=== PATIENT | female | born 1965 | race Caucasian/White ===

== ENCOUNTER 2022-10-14 23:53 | Observation (INO) | payer MEDICAID, SELFPAY ==
[2022-10-14 23:56] VITALS: BP 182/86; PULSE 63; RESP 24; TEMP 36.7; O2SAT 98; BMI 68.1
--- NOTE | 2022-10-14 23:57 | XR_ITS ---
[facility] [id number] Patient Name: KAELYN GOLDMAN MRN: [id number] date: 1965 Sex: F Assigned Patient Location: ER Current Patient Location: ED.MAIN Accession/Order Number: [id number] Exam Date: 10/14/2022 23:59 Report Date: 10/15/2022 01:14 At the request of: FROILAN MCKEON Procedure: XR chest 1V EXAM: XR chest 1V HISTORY: cp COMPARISON: None. TECHNIQUE: One view of the chest was obtained. FINDINGS: A tracheostomy tube is in place. The cardiac silhouette is mildly enlarged. There is no significant pneumothorax or pleural effusion. There is left basilar opacification. No acute osseous abnormality is seen. XR/XR chest 1V IMPRESSION: 1. Mildly enlarged cardiac silhouette with left basilar opacification which could represent atelectasis, aspiration changes, and/or pneumonia. Electronically authenticated by: Ladarius SAENZ Date: 10/15/2022 01:14
--- NOTE | 2022-10-14 23:57 | ECG_ITS ---
[facility] Test Date: 2022-10-15 Pat Name: Anca Perez Department: Room: - Gender: Female Reactor Operator: : 1965 Requested By: TERRY WHITEHEAD Order Number: [id number] Reading MD: JADE TYLER Measurements Intervals [place] Rate: 59 P: 58 IA: 144 QRS: 44 QRSD: 110 T: 90 QT: 404 QTc: 403 Interpretive Statements 1100 Sinus bradycardia 2420 RSR (QR) in lead V1/V2, consistent with right ventricular conduction delay [address] depression 4164 Twave abnormality, possible anterior ischemia 8102 Low QRS voltage in chest leads 9150 abnormal ECG No previous ECG available for comparison Electronically Signed On 10-15-2022 7:06:38 EDT by JADE TYLER
[2022-10-14 23:59] VITALS: BP 182/86
[2022-10-15] VITALS (63 sets, daily range): BP systolic 131–143; BP diastolic 71–84; PULSE 46–100; RESP 11–26; TEMP 36.6; O2SAT 86–100; BMI 65.2
--- NOTE | 2022-10-15 00:10 | ED_ITS ---
HPI - Chest Pain General Chief Complaint: Chest Pain Stated Complaint: chest pain Time Seen by Provider: 10/14/22 23:57 Source: patient and other Source comment: EMS Mode of arrival: ambulance Limitations: physical limitation History of Present Illness HPI narrative: Patient states coming to us from a alf facility with multiple comorbidities including CHF COPD GERD and schizophrenia with history of chronic respiratory failure on his trach with vent mask, the patient presenting to us with chest pain that started more than 2 hours before arrival , was provided with nitroglycerin before arrival and she does not have any pain at the moment ,the patient mentioned that the pain was retrosternal not associated with any nausea vomiting or any other complaints she has been having diarrhea too that is new for the last 3 days but she mentioned that it was preceded by her eating a lot of sweets The patient pain was retrosternal radiating to her left shoulder associated with pressure and according to her it was relieved by nitroglycerin The patient upon presentation was angry at the SNF as she mentioned that she had issues there although she was still agreeable to go back there when she is discharged Related Data Home Medications Medication Instructions Recorded Confirmed acetaminophen 325 mg capsule 325 mg PO Q6H PRN pain 10/15/22 10/15/22 bumetanide 2 mg tablet 2 mg PO TID 10/15/22 10/15/22 buspirone 15 mg tablet 15 mg PO TID 10/15/22 10/15/22 cholecalciferol (vitamin D3) 25 25 mcg PO DAILY 10/15/22 10/15/22 mcg (1,000 unit) capsule cinacalcet 30 mg tablet 30 mg PO DAILY 10/15/22 10/15/22 clonazepam 0.5 mg tablet 0.5 mg PO DAILY 10/15/22 10/15/22 clonazepam 1 mg tablet 1 mg PO BID 10/15/22 10/15/22 ferrous sulfate 325 mg (65 mg 325 mg PO DAILY 10/15/22 10/15/22 iron) tablet (iron) guaifenesin 600 mg tablet, 600 mg PO Q12H 10/15/22 10/15/22 extended release 12 hr ipratropium 0.5 mg-albuterol 3 mg 3 ml inhalation Q6H 10/15/22 10/15/22 (2.5 mg base)/3 mL nebulization soln levetiracetam 1,000 mg tablet 1,000 mg PO BID 10/15/22 10/15/22 (Keppra) levothyroxine 25 mcg tablet 25 mcg PO DAILY 10/15/22 10/15/22 (Euthyrox) loratadine 10 mg tablet (Claritin) 10 mg PO DAILY 10/15/22 10/15/22 metformin 500 mg tablet 500 mg PO BID 10/15/22 10/15/22 omeprazole 20 mg capsule,delayed 20 mg PO DAILY 10/15/22 10/15/22 release polyethylene glycol ea miscellaneous 10/15/22 potassium chloride 20 mEq 20 meq PO TID 10/15/22 10/15/22 tablet,extended release(part/cryst) (Klor-Con M) risperidone 1 mg tablet (Risperdal) 1 mg PO BID 10/15/22 10/15/22 risperidone 1 mg tablet (Risperdal) 1 mg PO DAILY 10/15/22 10/15/22 sennosides 8.6 mg-docusate sodium 1 tab-cap PO DAILY 10/15/22 10/15/22 50 mg tablet sertraline 100 mg tablet 100 mg PO DAILY 10/15/22 10/15/22 tizanidine 4 mg capsule 4 mg PO Q8H 10/15/22 10/15/22 topiramate 25 mg tablet (Topamax) 25 mg PO BID 10/15/22 10/15/22 tramadol 50 mg tablet 50 mg PO Q8H 10/15/22 10/15/22 Allergies Allergy/AdvReac Type Severity Reaction Status Date / Time aspirin Allergy Unknown Verified 10/15/22 00:00 Penicillins Allergy Unknown Verified 10/15/22 00:00 Review of Systems ROS Status of ROS 10 or more systems reviewed and unremarkable except as noted in history and below [facility] Medical History (Updated 10/15/22 @ 06:28 by Tomasa Bravo MD) Surgical History (Updated 10/15/22 @ 00:57 by Fabiana Harvey) Social History (Updated 10/15/22 @ 00:57 by Fabiana Harvey) Within the past year, how often did you have a drink containing alcohol: monthly or less Smoking status: Never smoker Non-prescribed substance use: denies use Exam Narrative Exam Narrative: Nurses notes and vital signs reviewed and patient is not hypoxic. General: Morbidly obese and bad hygiene and in no apparent distress. Skin: Warm, dry, no pallor noted. No rash. Head: Normocephalic, atraumatic. Neck: Supple, non-tender. With a trach mask Eye: Pupils are equal, round and EOMI. No scleral icterus. Ears, Nose, Mouth, and Throat: TM are clear, no nasal mucosal hypertrophy. Oral mucosa is moist, no posterior oropharynx erythema, uvula is mid-line Cardiovascular: Regular Rate and Rhythm without murmur, gallop or rub. Respiratory: No accessory muscle use or respiratory distress. Lungs distant breathing sound bilaterally ,with wheezing expiratoty and mild Chest Wall: no tenderness Back: No midline thoracic or lumbar vertebral tenderness. No CVA tenderness GI: Abdomen is soft, non-distended. Normal bowel sounds. No masses appreciated. No tenderness to palpation. No rebound, guarding, or rigidity noted. Neurological: A&O x4. No cranial nerve dysfunction observed. No truncal ataxia. Moves all extremities. Sensation intact. Psychiatric: Cooperative and interactive. Normal mood and affect. Constitutional Vital Signs, click to edit/add: Last Vital Signs Temp 98.0 F 10/14/22 23:56 Pulse 59 L 10/15/22 05:00 Resp 23 10/15/22 05:00 BP 182/86 H 10/14/22 23:59 Pulse Ox 100 10/15/22 05:00 O2 Del Method Venturi Mask 10/15/22 02:34 O2 Flow Rate 6 10/15/22 02:34 FiO2 40 10/15/22 04:27 Course Vital Signs Vital signs: Vital Signs Temperature 98.0 F 10/14/22 23:56 Pulse Rate 63 10/14/22 23:56 Respiratory Rate 24 10/14/22 23:56 Blood Pressure 182/86 H 10/14/22 23:56 Pulse Oximetry 98 10/14/22 23:56 Oxygen Delivery Method Venturi Mask 10/14/22 23:56 Oxygen Delivery Flow Rate 5 10/14/22 23:56 Temperature 98.0 F 10/14/22 23:56 Pulse Rate 59 L 10/15/22 05:00 Respiratory Rate 23 10/15/22 05:00 Blood Pressure 182/86 H 10/14/22 23:59 Pulse Oximetry 100 10/15/22 05:00 Oxygen Delivery Method Venturi Mask 10/15/22 02:34 Oxygen Delivery Flow Rate 6 10/15/22 02:34 Fraction of Inspired Oxygen 40 10/15/22 04:27 MDM - Chest Pain MDM Narrative Medical decision making narrative: When presenting to us the patient did not have any chest pain anymore her EKG showing multiple nonspecific changes with T wave inversion seen in lead V1 to V3 and the patient also had flattening of the T waves in lead III and aVF There was no old EKG for comparison the patient presented to us with elevated blood pressure of 180 systolic heart score is 5 It was noted that the patient also had diarrhea for the last few days and that was one of her concerns as well The patient EKG did show some nonspecific T wave inversion and she had her pain resolved with nitroglycerin before arrival, the patient received a breathing treatment in the ER she also had her trach vent setting that she is supposed to be at night started in the ER which is AC respiratory rate of 12 tidal volume 500 and PEEP of 6 with 40% oxygen The patient pain resolved before arrival but the patient is high risk and presented to us with a typical chest pain that is retrosternal associated with pressure and radiating to her left shoulder with a the pain resolving with nitroglycerin and T wave inversion in the EKG that have no previous EKG for comparison the patient will be kept for observation pt case discussed with Dr Gerardo and admitted as observation Lab Data Labs: Lab Results 10/14/22 10/15/22 Range/Units 00:35 02:21 WBC 6.9 (4.0-11.0) 10^3/uL RBC 4.43 (4.20-5.40) 10^6/uL Hgb 12.9 (12.0-16.0) g/dL Hct 41.7 (36.0-48.0) % MCV 94.1 (81.0-99.0) fL MCH 29.1 (26.7-34.0) pg MCHC 30.9 (29.9-35.2) g/dL RDW 12.6 (11.0-15.0) % Plt Count 181 (150-450) 10^3/uL MPV 11.6 (9.5-13.5) fL Neut % (Auto) 70.9 (43.0-75.0) % Lymph % (Auto) 19.2 L (20.5-60.0) % [place] % (Auto) 6.9 (1.7-12.0) % Eos % (Auto) 2.6 (0.9-7.0) % Baso % (Auto) 0.1 L (0.2-2.0) % Neut # (Auto) 4.9 (1.4-6.5) 10^3/uL Lymph # (Auto) 1.3 (1.2-3.8) 10^3/uL [place] # (Auto) 0.5 (0.3-0.8) 10^3/uL Eos # (Auto) 0.2 (0.0-0.7) 10^3/uL Baso # (Auto) 0.0 (0.0-0.1) 10^3/uL Abs Immat Gran (auto) 0.02 (0.00-0.03) 10^3/uL Imm/Tot Granulo (auto) 0.3 (0.0-0.5) % PT 9.8 (9.0-11.6) sec INR <0.93 Sodium 141 (136-145) mmol/L Potassium 3.4 L (3.5-5.1) mmol/L Chloride 100 (98-107) mmol/L Carbon Dioxide 38.0 H (21.0-32.0) mmol/L Anion Gap 6.4 BUN 21.0 H (7.0-18.0) mg/dL Creatinine 0.90 (0.55-1.02) mg/dL Est GFR ( Amer) >60 (>=60) Est GFR (Non-Af Amer) >60 (>=60) BUN/Creatinine Ratio 23.3 Glucose 109 H (74-106) mg/dL Calcium 9.4 (8.5-10.1) mg/dL Total Bilirubin 0.4 (0.2-1.0) mg/dL AST 16 (15-37) U/L ALT 23 (14-59) U/L Alkaline Phosphatase 110 (46-116) U/L Troponin I High Sens 5.7 6.0 (4.0-51.3) pg/mL Total Protein 8.0 (6.4-8.2) g/dL Albumin 3.4 (3.4-5.0) g/dL Globulin 4.6 g/dL Albumin/Globulin Ratio 0.7 Discharge Plan Discharge Chief Complaint: Chest Pain Clinical Impression: Chronic hypercapnic respiratory failure, Gastroenteritis, Chest pain Patient Disposition: Admitted as Observation Time of Disposition Decision: 06:28 Condition: Good
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
[2022-10-15 00:53] LABS: Basophils Percent Auto 0.1 % (0.2-2.0); Eosinophils Absolute Auto 0.2 10^3/uL (0.0-0.7); Eosinophils Percent Auto 2.6 % (0.9-7.0); Hematocrit 41.7 % (36.0-48.0); Hemoglobin 12.9 g/dL (12.0-16.0); Immature Granulocytes Abs Auto 0.02 10^3/uL (0.00-0.03); Immature Granulocytes Pct Auto 0.3 % (0.0-0.5); Lymphocytes Absolute Auto 1.3 10^3/uL (1.2-3.8); Lymphocytes Percent Auto 19.2 % (20.5-60.0); Mean Corpuscular HGB Conc 30.9 g/dL (29.9-35.2); Mean Corpuscular Hemoglobin 29.1 pg (26.7-34.0); Mean Corpuscular Volume 94.1 fL (81.0-99.0); Mean Platelet Volume 11.6 fL (9.5-13.5); Monocytes Absolute Auto 0.5 10^3/uL (0.3-0.8); Monocytes Percent Auto 6.9 % (1.7-12.0); Neutrophils Absolute Auto 4.9 10^3/uL (1.4-6.5); Neutrophils Percent Auto 70.9 % (43.0-75.0); Platelet Count 181 10^3/uL (150-450); Red Blood Count 4.43 10^6/uL (4.20-5.40); Red Cell Distribution Width 12.6 % (11.0-15.0); White Blood Count 6.9 10^3/uL (4.0-11.0)
[2022-10-15 01:03] LABS: INR <0.93; Prothrombin Time 9.8 sec (9.0-11.6)
[2022-10-15 01:06] LABS: Alanine Aminotransferase 23 U/L (14-59); Albumin Globulin Ratio 0.7; Albumin Level 3.4 g/dL (3.4-5.0); Alkaline Phosphatase 110 U/L (46-116); Anion Gap 6.4; Aspartate Amino Transferase 16 U/L (15-37); BUN Creatinine Ratio 23.3; Bilirubin Total 0.4 mg/dL (0.2-1.0); Calcium 9.4 mg/dL (8.5-10.1); Chloride 100 mmol/L (98-107); Estimated GFR (African America >60 (>=60); Estimated GFR (Non-African Ame >60 (>=60); Globulin 4.6 g/dL; Glucose 109 mg/dL (74-106); Potassium 3.4 mmol/L (3.5-5.1); Sodium 141 mmol/L (136-145); Troponin I High Sensitivity 5.7 pg/mL (4.0-51.3)
[2022-10-15] MEDS: IPRATROPIUM/ALBUTEROL SULFATE 3 ML AMPUL.NEB IH ×2 (02:30→10:32)
--- NOTE | 2022-10-15 04:27 | RESP.RT ---
Placed pt on vent per settings from jail. A/C Rate 12, VT 500, Peep 6, Fi02 40%.
--- NOTE | 2022-10-15 07:34 | CA_ITS ---
Patient: KAELYN GOLDMAN Exam Date: 10/15/2022 : 1965 Gender:F Ordering : Shaikh Marcela Gerardo . Admission #: [id number] Family : Order #: [id number] CLICK HERE TO VIEW EXAM ECHOCARDIOGRAM REPORT PROCEDURE: CA ECHO DOPPLER COMPLETE INDICATIONS: Chest pain, congestive heart failure, COPD, trach collar COMPARISON: None. DESCRIPTION: COMPLETE ECHOCARDIOGRAM Real-time transthoracic echocardiography with 2D, M-mode, spectral and color flow Doppler performed. QUALITY: Technically difficult study due to patients condition. 64 397# BSA 2.62 cm2 LEFT VENTRICLE: Mild dilatation. Borderline left ventricular hypertrophy. LV EF: Global left ventricular systolic function is difficult to assess but appears preserved; visually estimated ejection fraction is 55 to 60%. Cannot assess regional wall motion abnormality; consider contrast study for better delineation of endocardial borders. DIASTOLIC: Inadequately seen. ATRIAL SEPTUM: Visually appears intact. LEFT ATRIUM: Normal chamber size. RIGHT ATRIUM: Normal chamber size. RIGHT VENTRICLE: Appears enlarged; systolic function appears preserved. TRICUSPID VALVE: Poorly seen. Normal mobility and thickness. No regurgitation. MITRAL VALVE: Poorly seen. Normal mobility and thickness. There is no mitral annular calcification. No mitral regurgitation. AORTIC VALVE: Poorly seen. Normal trileaflet appearance. No visible sclerosis. Normal leaflet mobility. No aortic regurgitation. AORTIC ROOT: Normal diameter and appearance. PULMONIC VALVE: Not well visualized. PERICARDIUM: Anterior free space; trivial effusion versus fat pad. IVC: Collapses with inspirations. CONCLUSION: Global left ventricular systolic function is difficult to assess but appears preserved; visually estimated ejection fraction is 55 to 60%. The right ventricle appears enlarged with preserved systolic function. Valves are poorly seen; no significant valvular abnormalities. Anterior free space; trivial effusion versus fat pad. Adult Echocardiography Procedure Report Left Ventricle LVEDD (3.7 - 5.6 cm): 5.44 cm LVESD (2.2 - 4.0 cm): 3.96 cm LVIVS thickness (0.6 - 1.2 cm): 0.92 cm LVPW thickness (0.5 - 1.0 cm): 1.15 cm LVOT Diameter 2.27 cm Left Atrium Left Atrium Systolic Dimension: 3.74 cm Mitral Valve Right Ventricle Aorta AO Root Diam: 3.07 cm Aortic Valve Tricuspid Valve Pulmonic Valve Peak Velocity: 1.25 m/s Peak Gradient: 4.45 mm[Hg], 8.28 mm[Hg] Right Atrium Right Atrium Systolic Pressure: 52.88 ml, 52.88 ml Dictated by: Edith Monique M.D. on 10/15/2022 at 13:03 Approved by: Edith Monique M.D. on 10/15/2022 at 13:06
[2022-10-15 08:45] LABS: Troponin I High Sensitivity 5.9 pg/mL (4.0-51.3)
[2022-10-15] MEDS: ENOXAPARIN SODIUM 40 MG/0.4 ML SYRINGE SUBQ (09:39)
[2022-10-15] MEDS: FERROUS SULFATE 325 MG TABLET PO (09:39)
[2022-10-15] MEDS: OMEPRAZOLE 20 MG CAPSULE.DR PO (09:40)
[2022-10-15] MEDS: CHOLECALCIFEROL (VITAMIN D3) 25 MCG/1,000 UNITS TABLET PO (09:40)
[2022-10-15] MEDS: LEVOTHYROXINE SODIUM 25 MCG TABLET PO (09:40)
[2022-10-15] MEDS: GUAIFENESIN 600 MG TAB.ER.12H PO (09:40)
[2022-10-15] MEDS: CETIRIZINE HCL 10 MG TABLET PO (09:40)
[2022-10-15] MEDS: TOPIRAMATE 25 MG TABLET PO (09:40)
[2022-10-15] MEDS: risperiDONE 1 MG TABLET PO (09:40)
[2022-10-15] MEDS: CLONAZEPAM 0.5 MG TABLET 1 MG PO (09:40)
[2022-10-15] MEDS: METFORMIN HCL 500 MG TABLET PO ×2 (09:40→16:31)
[2022-10-15] MEDS: risperiDONE 1 MG TABLET 1.5 MG PO (09:40)
[2022-10-15] MEDS: LEVETIRACETAM 500 MG TABLET 1000 MG PO (09:41)
[2022-10-15] MEDS: SERTRALINE HCL 100 MG TABLET PO (09:41)
--- NOTE | 2022-10-15 11:15 | SWNOTE1 ---
Pt is from [facility] in [place], she has been there since July 2021, SW spoke with admissions at [facility].
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
--- NOTE | 2022-10-15 13:24 | SWNOTE1 ---
GUILLERMO attempted to call pt's daughter 3x, left voicemail one time. It was not a secure voicemail so no personal or medical information was left on voicemail. GUILLERMO also called pt's nephew as well, no answer. GUILLERMO spoke with Tyra in admissions to let her know pt will be returning today. GUILLERMO asked to speak with GUILLERMO as well at [facility], she stated they do not have one and the director is covering that spot. GUILLERMO was transferred to director, GUILLERMO left message for director.
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
[2022-10-15] MEDS: BUSPIRONE HCL 15 MG TABLET PO (15:17)
[2022-10-15] MEDS: BUMETANIDE 1 MG TABLET 2 MG PO (15:17)
[2022-10-15] MEDS: POTASSIUM CHLORIDE 10 MEQ ER TABLET 20 MEQ PO (15:17)
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
--- NOTE | 2022-10-15 16:49 | PC.NURSE ---
RN went to administer patients metformin, and patient was unaware of why she took metformin. Patient educated on use of metformin. Patient verbalized understanding.
== END 2022-10-15 17:33 ==
LOC: ER 10-15 06:35 → ICU 10-15 07:16 → ER 10-15 07:16 → ICU 10-15 07:16
PROVIDERS: Admitting Provider Internal Medicine; Emergency Provider Emergency Medicine; PCP Family Medicine; Visit Provider Internal Medicine
DX: R07.9 Chest pain, unspecified (principal); J96.10 Chronic respiratory failure, unspecified whether with hypoxia or hypercapnia; E11.9 Type 2 diabetes mellitus without complications; J44.0 Chronic obstructive pulmonary disease with (acute) lower respiratory infection; J18.9 Pneumonia, unspecified organism; F32.A Depression, unspecified; F41.9 Anxiety disorder, unspecified; F25.9 Schizoaffective disorder, unspecified; E03.9 Hypothyroidism, unspecified; E66.9 Obesity, unspecified; I50.9 Heart failure, unspecified; K52.9 Noninfective gastroenteritis and colitis, unspecified; Z86.74 Personal history of sudden cardiac arrest; Z93.0 Tracheostomy status; G40.909 Epilepsy, unspecified, not intractable, without status epilepticus; K21.9 Gastro-esophageal reflux disease without esophagitis; Z79.899 Other long term (current) drug therapy; Z79.890 Hormone replacement therapy; Z99.81 Dependence on supplemental oxygen; G47.33 Obstructive sleep apnea (adult) (pediatric); Z79.84 Long term (current) use of oral hypoglycemic drugs; Z68.44 Body mass index [BMI] 60.0-69.9, adult
CPT/HCPCS: 36415; 71045; 80053; 84484; 85025; 85610; 93005; 93306; 94002; 94640; 94761; 96372; 99285; G0378

== ENCOUNTER 2023-03-13 01:19 | Observation (INO) | payer MEDICAID, SELFPAY ==
[2023-03-13] VITALS (124 sets, daily range): BP systolic 112–159; BP diastolic 41–103; PULSE 50–119; RESP 0–31; TEMP 36.2–36.9; O2SAT 91–100; BMI 64.1; BMI 66.6
--- NOTE | 2023-03-13 01:25 | ED_ITS ---
HPI - Psych General Chief Complaint: Psychiatric Symptoms Time Seen by Provider: 03/13/23 01:19 Source: Reports patient Mode of arrival: ambulance Limitations: Reports no limitations History of Present Illness HPI Narrative: patient resides at skilled nursing. States she informed the staff that she was going to pull her trach out only to get their attention. No real plan to harm herself. states they called 911 Related Data Home Medications Medication Instructions Recorded Confirmed acetaminophen 325 mg capsule 325 mg PO Q6H PRN pain 10/15/22 03/13/23 bumetanide 2 mg tablet 2 mg PO TID 10/15/22 03/13/23 buspirone 15 mg tablet 15 mg PO TID 10/15/22 03/13/23 cholecalciferol (vitamin D3) 25 25 mcg PO DAILY 10/15/22 03/13/23 mcg (1,000 unit) capsule ipratropium 0.5 mg-albuterol 3 mg 3 ml inhalation Q6H 10/15/22 03/13/23 (2.5 mg base)/3 mL nebulization soln levetiracetam 1,000 mg tablet 1,000 mg PO BID 10/15/22 03/13/23 (Keppra) levothyroxine 25 mcg tablet 25 mcg PO DAILY 10/15/22 03/13/23 (Euthyrox) metformin 500 mg tablet 500 mg PO BID 10/15/22 03/13/23 polyethylene glycol 3350 17 gram 17 g PO DAILY 10/15/22 03/13/23 oral powder packet (Miralax) potassium chloride 20 mEq 20 meq PO TID 10/15/22 03/13/23 tablet,extended release(part/cryst) (Klor-Con M) apixaban 5 mg tablet 5 mg PO BID 03/13/23 03/13/23 desvenlafaxine succinate 50 mg 50 mg PO DAILY 03/13/23 03/13/23 tablet,extended release 24 hr (Pristiq) famotidine 20 mg tablet 20 mg PO DAILY 03/13/23 03/13/23 hydralazine 25 mg tablet 25 mg PO TID 03/13/23 03/13/23 hydroxyzine pamoate 25 mg capsule 25 mg PO BID 03/13/23 03/13/23 (Vistaril) loperamide 2 mg capsule 2 mg PO Q12H PRN loose stool 03/13/23 03/13/23 (Anti-Diarrheal (loperamide)) lorazepam 0.5 mg tablet (Ativan) 0.5 mg PO Q4H PRN anxiety 03/13/23 03/13/23 lurasidone 40 mg tablet 40 mg PO DAILY 03/13/23 03/13/23 magnesium oxide 400 mg PO DAILY 03/13/23 03/13/23 quetiapine 150 mg tablet 150 mg PO BID 03/13/23 03/13/23 Allergies Allergy/AdvReac Type Severity Reaction Status Date / Time aspirin Allergy Unknown Verified 10/15/22 00:00 Penicillins Allergy Unknown Verified 10/15/22 00:00 Review of Systems ROS Status of ROS 10 or more systems reviewed and unremark able except as noted in history and below [facility] Medical History (Updated 03/13/23 @ 06:24 by Todd Vanegas MD) Type 2 diabetes mellitus ?E11.9 - Type 2 diabetes mellitus without complications (ICD-10) Hypothyroid ?E03.9 - Hypothyroidism, unspecified (ICD-10) Pneumonia ?J18.9 - Pneumonia, unspecified organism (ICD-10) Chronic respiratory failure ?J96.10 - Chronic respiratory failure, unspecified whether with hypoxia or h ypercapnia (ICD-10) Tracheostomy in place ?Z93.0 - Tracheostomy status (ICD-10) Heart attack ?I21.9 - Acute myocardial infarction, unspecified (ICD-10) Chest pain ?R07.9 - Chest pain, unspecified (ICD-10) Gastroenteritis ?K52.9 - Noninfective gastroenteritis and colitis, unspecified (ICD-10) Chronic hypercapnic respiratory failure ?J96.12 - Chronic respiratory failure with hypercapnia (ICD-10) COPD (chronic obstructive pulmonary disease) ?J44.9 - Chronic obstructive pulmonary disease, unspecified (ICD-10) Anemia ?D64.9 - Anemia, unspecified (ICD-10) Obstructive sleep apnea ?G47.33 - Obstructive sleep apnea (adult) (pediatric) (ICD-10) Atrial fibrillation ?I48.91 - Unspecified atrial fibrillation (ICD-10) Cardiomyopathy ?I42.9 - Cardiomyopathy, unspecified (ICD-10) High cholesterol ?E78.00 - Pure hypercholesterolemia, unspecified (ICD-10) HTN (hypertension) ?I10 - Essential (primary) hypertension (ICD-10) Surgical History History of ?Z98.891 - History of uterine scar from previous surgery (ICD-10) History of cholecystectomy ?Z90.49 - Acquired absence of other specified parts of digestive tract (ICD- 10) Family History Other Family history of cancer Social History Within the past year, how often did you have a drink containing alcohol: monthly or less Smoking status: Never smoker Non-prescribed substance use: denies use Exam Constitutional Vital Signs, click to edit/add: Last Vital Signs Temp 98.5 F 03/13/23 01:15 Pulse 64 03/13/23 03:31 Resp 12 03/13/23 04:00 BP 134/60 03/13/23 03:31 Pulse Ox 96 03/13/23 03:31 O2 Del Method Trach Collar 03/13/23 01:50 O2 Flow Rate 5 03/13/23 01:50 FiO2 40 03/13/23 04:00 Common normals: no apparent distress, oriented x3, alert and well nourished Eye Common normals: EOMs intact bilaterally and conjunctivae normal Neck & C-Spine Other: tach in place and functioning normally Respiratory Common normals: normal respiratory effort, no retractions, no use of accessory muscles and clear to auscultation bilaterally Cardio Common normals: regular rate, regular rhythm, S1 normal heart sound and S2 normal heart sound GI Common normals: Normal to inspection, nondistended, normoactive bowel sounds present, soft to palpation and non-tender Extremity Common normals: normal to inspection Neuro Common normals: oriented x3, CN's II-XII intact bilaterally, moves all extremities and no focal motor deficits Psych Appearance: grossly normal Course Vital Signs Vital signs: Vital Signs Temperature 98.5 F 03/13/23 01:15 Pulse Rate 83 03/13/23 01:15 Respiratory Rate 20 03/13/23 01:15 Blood Pressure 153/86 H 03/13/23 01:15 Pulse Oximetry 95 03/13/23 01:15 Oxygen Delivery Flow Rate 5 03/13/23 01:15 Temperature 98.5 F 03/13/23 01:15 Pulse Rate 64 03/13/23 03:31 Respiratory Rate 12 03/13/23 04:00 Blood Pressure 134/60 03/13/23 03:31 Pulse Oximetry 96 03/13/23 03:31 Oxygen Delivery Method Trach Collar 03/13/23 01:50 Oxygen Delivery Flow Rate 5 03/13/23 01:50 Fraction of Inspired Oxygen 40 03/13/23 04:00 MDM - Psych MDM Narrative Medical decision making narrative: patient transferred from skilled nursing. States she threatened to pull out her tracheostomy because she wanted attention. Per skilled nursing staff patient is paranoid. Stating that she believes people are trying to get her to pull out her trach. That someone is flickering the lights and etc to egg her on. labs returned and are WNL. does have elevated bicarb related to her respiratory chronic illness. Will have to wait until she can consult with mental health for final disposition. Care transferred to Dr Bravo at change of shift Lab Data Labs: Lab Results 03/13/23 Range/Units 01:46 WBC 7.8 (4.0-11.0) 10^3/uL RBC 4.15 L (4.20-5.40) 10^6/uL Hgb 11.9 L (12.0-16.0) g/dL Hct 39.1 (36.0-48.0) % MCV 94.2 (81.0-99.0) fL MCH 28.7 (26.7-34.0) pg MCHC 30.4 (29.9-35.2) g/dL RDW 13.2 (11.0-15.0) % Plt Count 199 (150-450) 10^3/uL MPV 10.6 (9.5-13.5) fL Neut % (Auto) 58.9 (43.0-75.0) % Lymph % (Auto) 32.3 (20.5-60.0) % [place] % (Auto) 6.7 (1.7-12.0) % Eos % (Auto) 1.4 (0.9-7.0) % Baso % (Auto) 0.3 (0.2-2.0) % Neut # (Auto) 4.6 (1.4-6.5) 10^3/uL Lymph # (Auto) 2.5 (1.2-3.8) 10^3/uL [place] # (Auto) 0.5 (0.3-0.8) 10^3/uL Eos # (Auto) 0.1 (0.0-0.7) 10^3/uL Baso # (Auto) 0.0 (0.0-0.1) 10^3/uL Abs Immat Gran (auto) 0.03 (0.00-0.03) 10^3/uL Imm/Tot Granulo (auto) 0.4 (0.0-0.5) % Sodium 143 (136-145) mmol/L Potassium 3.6 (3.5-5.1) mmol/L Chloride 103 (98-107) mmol/L Carbon Dioxide 36.0 H (21.0-32.0) mmol/L Anion Gap 7.6 BUN 17.0 (7.0-18.0) mg/dL Creatinine 0.82 (0.55-1.02) mg/dL Est GFR ( Amer) >60 (>=60) Est GFR (Non-Af Amer) >60 (>=60) BUN/Creatinine Ratio 20.7 Glucose 105 (74-106) mg/dL Calcium 9.9 (8.5-10.1) mg/dL Salicylates 3.2 (<=19.9) mg/dL Acetaminophen <2.0 L (10.0-30.0) ug/mL Ethanol Quant <3 mg/dL Discharge Plan Discharge Chief Complaint: Psychiatric Symptoms Clinical Impression: Acute paranoia, Acute anxiety Patient Disposition: Still a Patient Prescriptions / Home Meds: No Action apixaban 5 mg tablet 5 mg PO BID lorazepam [Ativan] 0.5 mg tablet 0.5 mg PO Q4H PRN (Reason: anxiety) famotidine 20 mg tablet 20 mg PO DAILY hydralazine 25 mg tablet 25 mg PO TID loperamide [Anti-Diarrheal (loperamide)] 2 mg capsule 2 mg PO Q12H PRN (Reason: loose stool) lurasidone 40 mg tablet 40 mg PO DAILY Rx Instructions: must administer with food (at least 350 calories) magnesium oxide 400 mg magnesium tablet 400 mg PO DAILY desvenlafaxine succinate [Pristiq] 50 mg tablet extended release 24 hr 50 mg PO DAILY quetiapine 150 mg tablet 150 mg PO BID hydroxyzine pamoate [Vistaril] 25 mg capsule 25 mg PO BID acetaminophen 325 mg capsule 325 mg PO Q6H PRN (Reason: pain) Patient Comments: NEEDED FOR MILD PAIN OR INCREASED TEMP bumetanide 2 mg tablet 2 mg PO TID buspirone 15 mg tablet 15 mg PO TID ipratropium-albuterol 0.5 mg-3 mg(2.5 mg base)/3 mL solution for nebulization 3 ml inhalation Q6H levetiracetam [Keppra] 1,000 mg tablet 1,000 mg PO BID levothyroxine [Euthyrox] 25 mcg tablet 25 mcg PO DAILY metformin 500 mg tablet 500 mg PO BID potassium chloride [Klor-Con M20] 20 mEq tablet,ER particles/crystals 20 meq PO TID cholecalciferol (vitamin D3) 25 mcg (1,000 unit) capsule 25 mcg PO DAILY polyethylene glycol 3350 [Miralax] 17 gram powder in packet 17 g PO DAILY Referrals: TERRY WHITEHEAD [Primary Care Provider] - 1 week
[2023-03-13 01:53] LABS: Basophils Percent Auto 0.3 % (0.2-2.0); Eosinophils Absolute Auto 0.1 10^3/uL (0.0-0.7); Eosinophils Percent Auto 1.4 % (0.9-7.0); Hematocrit 39.1 % (36.0-48.0); Hemoglobin 11.9 g/dL (12.0-16.0); Immature Granulocytes Abs Auto 0.03 10^3/uL (0.00-0.03); Immature Granulocytes Pct Auto 0.4 % (0.0-0.5); Lymphocytes Absolute Auto 2.5 10^3/uL (1.2-3.8); Lymphocytes Percent Auto 32.3 % (20.5-60.0); Mean Corpuscular HGB Conc 30.4 g/dL (29.9-35.2); Mean Corpuscular Hemoglobin 28.7 pg (26.7-34.0); Mean Corpuscular Volume 94.2 fL (81.0-99.0); Mean Platelet Volume 10.6 fL (9.5-13.5); Monocytes Absolute Auto 0.5 10^3/uL (0.3-0.8); Monocytes Percent Auto 6.7 % (1.7-12.0); Neutrophils Absolute Auto 4.6 10^3/uL (1.4-6.5); Neutrophils Percent Auto 58.9 % (43.0-75.0); Platelet Count 199 10^3/uL (150-450); Red Blood Count 4.15 10^6/uL (4.20-5.40); Red Cell Distribution Width 13.2 % (11.0-15.0); White Blood Count 7.8 10^3/uL (4.0-11.0)
[2023-03-13 02:02] LABS: Salicylate 3.2 mg/dL (<=19.9)
[2023-03-13 02:08] LABS: Anion Gap 7.6; BUN Creatinine Ratio 20.7; Calcium 9.9 mg/dL (8.5-10.1); Chloride 103 mmol/L (98-107); Estimated GFR (African America >60 (>=60); Estimated GFR (Non-African Ame >60 (>=60); Glucose 105 mg/dL (74-106); Potassium 3.6 mmol/L (3.5-5.1); Sodium 143 mmol/L (136-145)
[2023-03-13 02:19] LABS: Acetaminophen <2.0 ug/mL (10.0-30.0); Ethanol <3 mg/dL
--- NOTE | 2023-03-13 04:22 | RESP.RT ---
Elvira XLT I.D 5.0 O.D 9.6 L 90
--- NOTE | 2023-03-13 08:50 | ECG_ITS ---
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
[2023-03-13] MEDS: IPRATROPIUM/ALBUTEROL SULFATE 3 ML AMPUL.NEB IH (09:38)
[2023-03-13] MEDS: LORAZEPAM 0.5 MG TABLET PO ×2 (17:05→21:29)
[2023-03-13] MEDS: LEVETIRACETAM 500 MG TABLET 1000 MG PO (20:08)
[2023-03-13] MEDS: APIXABAN 5 MG TABLET PO (20:08)
[2023-03-13] MEDS: HYDROXYZINE PAMOATE 25 MG CAPSULE PO (20:08)
[2023-03-13] MEDS: METFORMIN HCL 500 MG TABLET PO (20:09)
[2023-03-13] MEDS: QUETIAPINE FUMARATE 25 MG TABLET 150 MG PO (20:09)
[2023-03-13] MEDS: ACETAMINOPHEN 325 MG TABLET 650 MG PO (21:29)
[2023-03-13] MEDS: BUMETANIDE 1 MG TABLET 2 MG PO (21:29)
[2023-03-13] MEDS: BUSPIRONE HCL 15 MG TABLET PO (21:29)
[2023-03-13] MEDS: POTASSIUM CHLORIDE 10 MEQ ER TABLET 20 MEQ PO (21:35)
[2023-03-13] MEDS: HYDRALAZINE HCL 25 MG TABLET PO (21:35)
[2023-03-14] VITALS (19 sets, daily range): BP systolic 102–138; BP diastolic 58–81; PULSE 49–100; RESP 12–26; TEMP 36.6–37.3; O2SAT 89–100
[2023-03-14] MEDS: IPRATROPIUM/ALBUTEROL SULFATE 3 ML AMPUL.NEB IH (05:58)
[2023-03-14] MEDS: POTASSIUM CHLORIDE 10 MEQ ER TABLET 20 MEQ PO (07:13)
[2023-03-14] MEDS: LEVOTHYROXINE SODIUM 25 MCG TABLET PO (07:14)
[2023-03-14] MEDS: BUSPIRONE HCL 15 MG TABLET PO (07:14)
[2023-03-14] MEDS: HYDRALAZINE HCL 25 MG TABLET PO (07:14)
[2023-03-14] MEDS: BUMETANIDE 1 MG TABLET 2 MG PO (07:14)
[2023-03-14 07:57] LABS: Glucometer 111 mg/dL (74-106)
[2023-03-14] MEDS: CHOLECALCIFEROL (VITAMIN D3) 25 MCG/1,000 UNITS TABLET PO (08:26)
[2023-03-14] MEDS: MAGNESIUM OXIDE 400 MG TABLET PO (08:26)
[2023-03-14] MEDS: METFORMIN HCL 500 MG TABLET PO (08:26)
[2023-03-14] MEDS: DESVENLAFAXINE SUCCINATE 50 MG TAB.ER.24H PO (08:26)
[2023-03-14] MEDS: QUETIAPINE FUMARATE 25 MG TABLET 50 MG PO (08:26)
[2023-03-14] MEDS: FAMOTIDINE 20 MG TABLET PO (08:26)
[2023-03-14] MEDS: QUETIAPINE FUMARATE 100 MG TABLET PO (08:26)
[2023-03-14] MEDS: HYDROXYZINE PAMOATE 25 MG CAPSULE PO (08:26)
[2023-03-14] MEDS: LEVETIRACETAM 500 MG TABLET 1000 MG PO (08:26)
[2023-03-14] MEDS: APIXABAN 5 MG TABLET PO (08:28)
--- NOTE | 2023-03-14 08:36 | CM.NOTE ---
Spoke with pt about discharge planning, pt is in agreement to return to [facility]. Pt states reason for coming to hospital is , RN at [facility] felt she was suicidal. Pt denies any suicidal ideations, pt states she does have a history of mental health and suicide attempt and was placed in a Mental Health facility. Pt denies any thoughts of harming herself at this time. Pt states she is happy at [facility] and does wish to return. Pt states her trach collar was hurting her so she removed it and her trach had came out. Pt states she attempted to put trach back in but couldn't get it back in so she had called for the nurse. [facility] then had her transported to hospital.
--- NOTE | 2023-03-14 10:28 | SWNOTE1 ---
GUILLERMO had spoken with documentation consultant engineering design supervisor on 03/13/23 in regards to pt returning to [facility], but [facility] not accepting. Last conversation was our President was going to be calling [facility]'s windows server administrator. Pt has been admitted to ICU. At this time she is ready for dc back to facility and has been cleared by [facility]. GUILLERMO called and spoke with Roxy in admissions. She would like updates and had several questions. GUILLERMO answered all questions and sent updates. Roxy voiced to let her know what time dc was.
--- NOTE | 2023-03-14 10:29 | P.HP_ITS ---
<Statement entered by Shaikh Akin MD - 03/14/23 13:33> This documentation has been reviewed and approved. Seen and examined. Patient sent to ED for Paranoid ideation as she was attempting to take her trach off. She was admitted for observation. Cleared by Psych for discharge back to long term. Exam Morbidly obese, NAD Trach in plae. CTA bilaterally, normal RR. Assessment and Plan Chronic resp failure Morbid obesity Seizure disorder T2 DM Bipolar disorder Stable. Follow up as outpatient with psych. Stable mood, no SI/HI. H&P: HPI History of Present Illness Chief complaint: Chronic respiratory failure paranoid disorder Narrative: 03/14/23 0955 This is a 57-year-old female patient with a complicated past medical history as outlined below including DM type II, COPD, LEV, chronic A-fib, schizophrenia/paranoid disorder, s/p cardiac arrest and subsequent tracheostomy placement, cardiomyopathy, chronic respiratory failure, among others; who was brought to the ED via EMS from her home [facility] because she had pulled out her trach inner cannula after staff noted increased hallucinations including aural hallucinations with someone telling her to pull her trach out. Pt reportedly threatened to pull out her trach to get attention. History of events is unclear as the pt is an unreliable historian. Placement at a psychiatric facility was planned by the NF. Work up in the ED was benign and they attempted to return her to the NF last night. Unfortunately, one of the psychiatric facilities recommended 1:1 care and the SNF did not have staff to facilitate this. She was admitted to observation overnight with the stated plan of returning her to her home [facility] this morning. At the time of my exam the pt was resting comfortably in bed w/ her usual O2 supplementation and at her baseline medical state. She denies trying to harm herself and now states that staff sometimes ask her to decanulate in order to clear her stoma of secretions and she thought someone was telling her to do that last night. It is unclear if this is truly the case or if she was having aural hallucinations about this. Her home [facility] has agreed to take her back this morning and she is being discharged in stable condition back to [facility]. We defer to their provider if placement in a psychiatric facility is indicated. Review of Systems ROS Status of ROS 10 or more systems reviewed and unremark able except as noted in history and below [facility] Medical History (Updated 03/14/23 @ 13:00 by Karlene Soliz NP) Seizure disorder ?G40.909 - Epilepsy, unspecified, not intractable, without status epilepticus (ICD-10) Type 2 diabetes mellitus ?E11.9 - Type 2 diabetes mellitus without complications (ICD-10) Hypothyroid ?E03.9 - Hypothyroidism, unspecified (ICD-10) Pneumonia ?J18.9 - Pneumonia, unspecified organism (ICD-10) Chronic respiratory failure ?J96.10 - Chronic respiratory failure, unspecified whether with hypoxia or hypercapnia (ICD-10) Tracheostomy in place ?Z93.0 - Tracheostomy status (ICD-10) Heart attack ?I21.9 - Acute myocardial infarction, unspecified (ICD-10) Chest pain ?R07.9 - Chest pain, unspecified (ICD-10) Gastroenteritis ?K52.9 - Noninfective gastroenteritis and colitis, unspecified (ICD-10) Chronic hypercapnic respiratory failure ?J96.12 - Chronic respiratory failure with hypercapnia (ICD-10) COPD (chronic obstructive pulmonary disease) ?J44.9 - Chronic obstructive pulmonary disease, unspecified (ICD-10) Anemia ?D64.9 - Anemia, unspecified (ICD-10) Obstructive sleep apnea ?G47.33 - Obstructive sleep apnea (adult) (pediatric) (ICD-10) Atrial fibrillation ?I48.91 - Unspecified atrial fibrillation (ICD-10) Cardiomyopathy ?I42.9 - Cardiomyopathy, unspecified (ICD-10) High cholesterol ?E78.00 - Pure hypercholesterolemia, unspecified (ICD-10) HTN (hypertension) ?I10 - Essential (primary) hypertension (ICD-10) Surgical History History of ?Z98.891 - History of uterine scar from previous surgery (ICD-10) History of cholecystectomy ?Z90.49 - Acquired absence of other specified parts of digestive tract (ICD- 10) Family History Other Family history of cancer Social History Within the past year, how often did you have a drink containing alcohol: monthly or less Smoking status: Never smoker Non-prescribed substance use: denies use Highest level of school completed/degree received: 12th grade, no diploma Meds Home Medications and Allergies Home Medications Medication Instructions Recorded Confirmed Type acetaminophen 325 mg capsule 325 mg PO Q6H PRN pain 10/15/22 03/13/23 History bumetanide 2 mg tablet 2 mg PO TID 10/15/22 03/13/23 History buspirone 15 mg tablet 15 mg PO TID 10/15/22 03/13/23 History cholecalciferol (vitamin D3) 25 25 mcg PO DAILY 10/15/22 03/13/23 History mcg (1,000 unit) capsule ipratropium 0.5 mg-albuterol 3 mg 3 ml inhalation Q6H PRN shortness 10/15/22 03/14/23 History (2.5 mg base)/3 mL nebulization of breath or wheezing soln levetiracetam 1,000 mg tablet 1,000 mg PO BID 10/15/22 03/13/23 History (Keppra) levothyroxine 25 mcg tablet 25 mcg PO DAILY 10/15/22 03/13/23 History (Euthyrox) metformin 500 mg tablet 500 mg PO BID 10/15/22 03/13/23 History polyethylene glycol 3350 17 gram 17 g PO DAILY PRN constipation 10/15/22 03/14/23 History oral powder packet (Miralax) potassium chloride 20 mEq 20 meq PO DAILY 10/15/22 03/14/23 History tablet,extended release(part/cryst) (Klor-Con M) apixaban 5 mg tablet 5 mg PO BID 03/13/23 03/13/23 History desvenlafaxine succinate 50 mg 50 mg PO DAILY 03/13/23 03/13/23 History tablet,extended release 24 hr (Pristiq) famotidine 20 mg tablet 20 mg PO .QHS 03/13/23 03/14/23 History hydralazine 25 mg tablet 25 mg PO TID 03/13/23 03/13/23 History hydroxyzine pamoate 25 mg capsule 25 mg PO Q8H 03/13/23 03/14/23 History (Vistaril) loperamide 2 mg capsule 2 mg PO Q12H PRN loose stool 03/13/23 03/13/23 History (Anti-Diarrheal (loperamide)) lorazepam 0.5 mg tablet (Ativan) 0.5 mg PO Q4H PRN anxiety 03/13/23 03/13/23 History lurasidone 40 mg tablet 40 mg PO DAILY 03/13/23 03/13/23 History magnesium oxide 400 mg PO DAILY 03/13/23 03/13/23 History quetiapine 150 mg tablet 150 mg PO BID 03/13/23 03/13/23 History sodium chloride 3 % for 4 ml inhalation Q4H PRN secretions 03/14/23 Rx nebulization (NebuSal) #120 mL Allergies Allergy/AdvReac Type Severity Reaction Status Date / Time aspirin Allergy Unknown Verified 10/15/22 00:00 Penicillins Allergy Unknown Verified 10/15/22 00:00 Exam Constitutional Vital Signs, click to edit/add: Last Vital Signs Temp 99.2 F 03/14/23 08:11 Pulse 95 H 03/14/23 10:00 Resp 16 03/14/23 06:10 BP 138/81 03/14/23 07:57 Pulse Ox 89 L 03/14/23 08:00 O2 Del Method Venturi Mask 03/14/23 05:55 O2 Flow Rate 5 03/13/23 21:33 FiO2 40 03/14/23 06:00 Common normals: no apparent distress, oriented x3, alert and well nourished General appearance: cooperative Orientation/consciousness: Yes awake HENTX Common normals: normocephalic, head/scalp atraumatic, hearing grossly normal bilaterally, external nose normal and moist oral mucous membranes Teeth and gingiva: edentulous Eye Common normals: PERRL, EOMs intact bilaterally, conjunctivae normal and no scleral icterus Alignment: alignment normal Neck & C-Spine Common normals: full ROM, supple and no JVD Chest Common normals: inspection of chest normal Chest: symmetrical chest wall rise Respiratory Common normals: normal respiratory effort, no retractions and no use of accessory muscles Effort & inspection: able to speak in complete sentences (Short sentences. Long sentences interrupted) and other (Permanent trach in place w/ PassyMuir valve) Auscultation: rhonchi (Scattered throughout. Poor cough effort) and diminished lung sounds (LLL) Cardio Common normals: no JVD, regular rate, regular rhythm, S1 normal heart sound, S2 normal heart sound, no gallops, no clicks, no murmurs, no rub and peripheral pulses 2+ throughout GI Common normals: Normal to inspection, nondistended, normoactive bowel sounds present, soft to palpation, non-tender, no hepatosplenomegaly, no masses and no bruits Palpation: tender Details: suprapubic (Mild tenderness) Bladder/kidney exam: bladder normal to palpation Back & Pelvis Common normals: thoracic and lumbar spine normal to inspection Extremity Common normals: normal capillary refill General: normal exam except as noted and edema (Trace bilat lipoedema); no clubbing and no cyanosis Neuro [place] Coma Scale: GCS not evaluated Common normals: CN's II-XII intact bilaterally, moves all extremities, no focal motor deficits and no sensory deficits noted Motor exam: strength 5/5 throughout Psych Common normals: mental status grossly normal, affect normal, activity/motor behavior normal and denies hallucinations; negative for thought process normal (Possible schizophrenic paronoia/hearing voices) Results Pulse Oximetry Attestation: I have reviewed the pertinent pulse oximetry results. Assessment and Plan Assessment and Plan (1) Acute paranoia: Assessment and Plan: ACUTE * Adm observation * Unclear if the pt is experiencing acute aural hallucinations, increased paranoia beyond her baseline * No evidence of hallucinations at the time of my exam today * Continue home psychiatric medications - desenlafaxine, buspirone, hydroxyzine, lorazepam, Lurasidone, Seroquel * D/C back to home NF for continued care (2) Type 2 diabetes mellitus: Assessment and Plan: CHRONIC * Hold home metformin during admission * ACHS glucometer checks * Med dose SSI for glucose correction (3) Chronic respiratory failure: Assessment and Plan: CHRONIC * Continue home O2 supplemention via trach mask - stable (4) Hypothyroid: Assessment and Plan: CHRONIC * Continue home levothyroxine (5) COPD (chronic obstructive pulmonary disease): Assessment and Plan: CHRONIC * Continue home breathing nebs/O2 supplementation (6) Atrial fibrillation: Assessment and Plan: CHRONIC * Continue home apixaban for CVA prevension * Not currently on rate controlling meds - HR well controlled (7) Seizure disorder: Assessment and Plan: CHRONIC * Continue home Keppra
--- NOTE | 2023-03-14 10:35 | CM.NOTE ---
Rounds made with Dr. Gerardo, pt can discharge back to [facility] today.
--- NOTE | 2023-03-14 11:00 | SWNOTE1 ---
[facility] SW set up [facility] and they will be here around noon. Nursing and [facility] updated with time of transport. Will call family as well.
== END 2023-03-14 12:22 ==
LOC: ER 14:27 → ICU 15:14
PROVIDERS: Admitting Provider Internal Medicine; Emergency Provider Internal Medicine; PCP Family Medicine; Visit Provider Internal Medicine
DX: F22 Delusional disorders (principal); E11.9 Type 2 diabetes mellitus without complications; J96.10 Chronic respiratory failure, unspecified whether with hypoxia or hypercapnia; E03.9 Hypothyroidism, unspecified; J44.9 Chronic obstructive pulmonary disease, unspecified; I48.20 Chronic atrial fibrillation, unspecified; G40.909 Epilepsy, unspecified, not intractable, without status epilepticus; F31.9 Bipolar disorder, unspecified; E66.01 Morbid (severe) obesity due to excess calories; Z68.44 Body mass index [BMI] 60.0-69.9, adult; E78.00 Pure hypercholesterolemia, unspecified; G47.33 Obstructive sleep apnea (adult) (pediatric); I42.9 Cardiomyopathy, unspecified; Z93.0 Tracheostomy status; Z99.81 Dependence on supplemental oxygen; Z99.11 Dependence on respirator [ventilator] status; Z86.74 Personal history of sudden cardiac arrest; Z87.01 Personal history of pneumonia (recurrent); I25.2 Old myocardial infarction; Z90.49 Acquired absence of other specified parts of digestive tract; Z98.891 History of uterine scar from previous surgery; Z79.890 Hormone replacement therapy; Z79.899 Other long term (current) drug therapy
CPT/HCPCS: 36415; 51798; 80048; 80179; 80307; 80320; 80329; 82948; 85025; 93005; 94002; 94003; 94640; 94761; 99285; G0378; Q0177